=== PATIENT | female | born 1970 | race Caucasian/White ===

== ENCOUNTER 2016-08-21 14:59 | Emergency (ER) | payer OTHER ==
[~2016-08-21] VITALS: Ht 157.5 cm; Wt 89.3 kg
[~2016-08-21 14:59] MED LIST: OXAYDO5 MG PO; OXYCONTIN10 MG PO; PAXIL10 MG PO; TOPAMAX100 MG PO
[2016-08-21 15:50] LABS: CHLORIDE 107 mEq/L (99-109); POTASSIUM 3.8 mEq/L (3.7-5.4); SODIUM 139 mEq/L (136-147)
[2016-08-21 15:51] LABS: GLUCOSE 97 mg/dL (70-99)
[2016-08-21 15:53] LABS: ANION GAP 10 MEQ/L (2-14)
[2016-08-21 15:55] LABS: GFR ESTIMATE (CALCULATED) > 59 mL/min/
[2016-08-21 15:56] LABS: UREA NITROGEN (BUN) 13 mg/dL (9-23)
[2016-08-21 16:03] LABS: QUANTITATIVE HCG < 4.0 MIU/ML
[2016-08-21 16:48] VITALS: BP 130/79
== END 2016-08-21 16:49 | disposition home or self-care (01) ==
LOC: EME 14:59
PROVIDERS: Emergency Medicine
DX: G40.909 Epilepsy, unspecified, not intractable, without status epilepticus (principal); T42.6X6A Underdosing of other antiepileptic and sedative-hypnotic drugs, initial encounter; Z91.128 Patient's intentional underdosing of medication regimen for other reason; F17.200 Nicotine dependence, unspecified, uncomplicated
CPT/HCPCS: 80048; 84702; 93005; 99281; 99284